=== PATIENT | male | born 1960 | race Caucasian/White ===

== ENCOUNTER 2017-08-25 19:37 | Emergency (ER) | payer OTHER ==
[2017-08-25] MEDS ORDERED: GLUCAGON,HUMAN RECOMB 1 MG INJ IV ONE (21:04)
[2017-08-25] MEDS ORDERED: MAG HYDROX/AL HYDROX/SIMETH SUSP 30 ML UDCUP PO ONE (21:48)
[2017-08-25] MEDS ORDERED: LIDOCAINE 2% VISCOUS SOLN 20 ML UDCUP PO ONE (21:48)
[2017-08-25] MEDS ORDERED: METOCLOPRAMIDE HCL ORAL SOLN 10 MG/10 ML UDCUP PO ONE (21:48)
--- NOTE | 2017-08-25 22:02 | ER Document Report ---
ED General - General Chief Complaint: Foreign Body Stated Complaint: THROAT PAIN Time Seen by Provider: 08/25/17 21:04 Notes: The patient is a 57-year-old male with a past medical history of esophageal strictures that required dilation on 2 prior occasions who presents with a food bolus lodged in his esophagus. The patient states that he was eating ribs prior to arrival when he feels like a piece of the rib got stuck in his throat. He describes a sensation of something being stuck in his chest and as a dull, throbbing, constant pain. He states this feels very similar to when he had flu but says stuck in his esophagus in the past. He has had nausea and is unable to swallow and keep whatever he swallows down. He denies any difficulty breathing. No vomiting. TRAVEL OUTSIDE OF THE [place] IN LAST 30 DAYS: No - Related Data Allergies/Adverse Reactions: morphine Allergy (Verified 08/25/17 19:40) Past Medical History - General Information source: Patient - Social History Smoking Status: Never Smoker Frequency of alcohol use: None Drug Abuse: None Lives with: Spouse/Significant other Family History: Reviewed & Not Pertinent Patient has suicidal ideation: No Patient has homicidal ideation: No Renal/ Medical History: Denies: Hx Peritoneal Dialysis Review of Systems - Review of Systems Notes: Constitutional: Negative for fever. HENT: Positive for a sensation of something being stuck in his throat and chest Eyes: Negative for visual changes. Cardiovascular: Negative for chest pain. Respiratory: Negative for shortness of breath. Gastrointestinal: Positive for nausea Genitourinary: Negative for dysuria. Musculoskeletal: Negative for back pain. Skin: Negative for rash. Neurological: Negative for headaches, weakness or numbness. 10 point ROS negative except as marked above and in HPI. Physical Exam - Vital signs Vitals: Temp Pulse Resp BP Pulse Ox 98.2 F 92 20 156/92 H 96 08/25/17 19:55 08/25/17 19:55 08/25/17 19:55 08/25/17 19:55 08/25/17 19:55 Interpretation: Hypertensive Notes: PHYSICAL EXAMINATION: GENERAL: Well-appearing, well-nourished and in no acute distress. HEAD: Atraumatic, normocephalic. EYES: Pupils equal round and reactive to light, extraocular movements intact, sclera anicteric, conjunctiva are normal. ENT: nares patent, oropharynx clear without exudates. Moist mucous membranes. NECK: Normal range of motion, supple without lymphadenopathy LUNGS: Breath sounds clear to auscultation bilaterally and equal. No wheezes rales or rhonchi. HEART: Regular rate and rhythm without murmurs ABDOMEN: Soft, nontender, normoactive bowel sounds. No guarding, no rebound. No masses appreciated. EXTREMITIES: Normal range of motion, no pitting or edema. No cyanosis. NEUROLOGICAL: No focal neurological deficits. Moves all extremities spontaneously and on command. PSYCH: Normal mood, normal affect. SKIN: Warm, Dry, normal turgor, no rashes or lesions noted. Course - Re-evaluation Re-evalutation: 08/25/17 21:59 Patient presents with a foreign body lodged in the esophagus of which she has a history. It appears that it is a piece of pork. The patient states that he can swallow secretions but they never stay down he ends up spitting them back up. He has a history of the same in the past including requiring 2 esophageal dilations in the past. X-rays do not show any evidence of perforation or aspiration. I have discussed with our surgeon clinical education coordinator Dr. Nunn who has accepted the patient for endoscopy. 08/26/17 00:32 Endoscopy has been completed without difficulty. Patient is awake, alert and appropriate for discharge, tolerating oral intake without difficulty. At this time will discharge with return precautions and follow-up recommendations. Verbal discharge instructions given a the bedside and opportunity for questions given. Medication warnings reviewed. Patient is in agreement with this plan and has verbalized understanding of return precautions and the need for primary care follow-up in the next 24-72 hours. - Vital Signs Vital signs: Temp Pulse Resp BP Pulse Ox 98.2 F 89 16 145/88 H 97 08/25/17 19:55 08/26/17 01:25 08/26/17 01:25 08/26/17 01:25 08/26/17 01:25 - Diagnostic Test Radiology reviewed: Image reviewed, Reports reviewed Radiology results interpreted by me: 08/25/17 22:01 Chest xray: No infiltrate or evidence of aspiration Discharge - Discharge Clinical Impression: Esophageal obstruction due to food impaction Nausea and vomiting Qualifiers: Vomiting type: unspecified Vomiting Intractability: non-intractable Qualified Code(s): R11.2 - Nausea with vomiting, unspecified Condition: Good Disposition: HOME, SELF-CARE Additional Instructions: Please follow-up with your GI doctor for consideration of an esophageal dilation. Return if you have difficulty breathing, difficulty swallowing, persistent vomiting, or any other symptoms that are worrisome to you. Referrals: AYAKA PERDOMO MD [Primary Care Provider] - Follow up as needed
--- NOTE | 2017-08-25 22:39 | RADIOLOGY REPORT (SQ) ---
EXAM DESCRIPTION: SOFT TISSUE NECK COMPLETED DATE/TIME: 08/25/2017 9:40 pm REASON FOR STUDY: foreign body throat COMPARISON: None. NUMBER OF VIEWS: Two views. TECHNIQUE: AP and lateral radiographic image of the soft tissues of the neck. LIMITATIONS: None. FINDINGS: EPIGLOTTIS: Contour normal. PREVERTEBRAL SOFT TISSUES: No soft tissue swelling. SUBGLOTTIC AREA: Normal. No narrowing. BONES: No significant findings. LUNG APICES: Normal. OTHER: No radiopaque foreign body. IMPRESSION: No acute radiographic finding at the soft tissues of the neck. No radiopaque foreign mor dy. TECHNICAL DOCUMENTATION: JOB ID: [id number] [place]-[id number] 2010 [employer]- All Rights Reserved Reading location - IP/workstation name: [email or web address]
--- NOTE | 2017-08-25 22:44 | RADIOLOGY REPORT (SQ) ---
EXAM DESCRIPTION: CHEST SINGLE VIEW COMPLETED DATE/TIME: 08/25/2017 9:40 pm REASON FOR STUDY: foreign body throat COMPARISON: None. EXAM PARAMETERS: NUMBER OF VIEWS: One view. TECHNIQUE: Single frontal radiographic view of the chest acquired. RADIATION DOSE: NA LIMITATIONS: None. FINDINGS: LUNGS AND PLEURA: No consolidation, pneumothorax or pleural effusion. MEDIASTINUM AND HILAR STRUCTURES: No masses. Contour normal. HEART AND VASCULAR STRUCTURES: Heart normal in size. Normal vasculature. BONES: No acute findings. HARDWARE: None in the chest. OTHER: No radiopaque foreign body is identified. IMPRESSION: No acute radiographic finding in the chest. No radiopaque foreign body. TECHNICAL DOCUMENTATION: JOB ID: [id number] [place]-[id number] 2010 [employer]- All Rights Reserved Reading location - IP/workstation name: [email or web address]
[2017-08-25] MEDS ORDERED: DIPHENHYDRAMINE HCL 50 MG/ML VIAL ONE (22:54)
[2017-08-25] MEDS ORDERED: NALOXONE HCL INJ/PF 0.4 MG/1 ML SDV ONE (22:54)
[2017-08-25] MEDS ORDERED: ONDANSETRON HCL INJ/PF 4 MG/2 ML SDV ONE (22:54)
[2017-08-25] MEDS ORDERED: EPINEPHRINE INJ 1 MG/10 ML DISP.SYRIN ONE (22:55)
[2017-08-25] MEDS ORDERED: FLUMAZENIL INJ 0.5 MG/5 ML VIAL ONE (22:55)
[2017-08-25] MEDS ORDERED: GLUCAGON,HUMAN RECOMB 1 MG INJ ONE (22:55)
--- NOTE | 2017-08-25 23:17 | PDOC CONSULTATION ---
Consultation Consult Date: 08/25/17 Consult reason:: Food bolus lodged within the esophagus History of Present Illness Admission Date/PCP: AYAKA PERDOMO Patient complains of: Food bolus lodged within the esophagus History of Present Illness: MARTHA TOVAR is a 57 year old male seen in consultation at the request of the ER physician. The pt has a h/o chronic esophageal stricture. He has had previous dilations and food bolus extractions in the past. Earlier today, he was eating meat and felt it become stuck. Afterwards, the pt was unable to swallow anything. The pt denies any shortness of breath, fevers chills, nausea, dizziness, orthostasis, abdominal pain, melena. He does report chest discomfort with swallowing. Nothing makes his pain better. Swallowing makes it worse. Past Medical History Cardiac Medical History: Reports: Hypertension Pulmonary Medical History: Reports: None EENT Medical History: Reports: None Neurological Medical History: Reports: None Endocrine Medical History: Reports: None Renal/ Medical History: Reports: None Malignancy Medical History: Reports: None GI Medical History: Reports: Other - esophageal stricture Musculoskeltal Medical History: Reports: None Skin Medical History: Reports: None Psychiatric Medical History: Reports: None Traumatic Medical History: Reports: None Infectious Medical History: Reports: None Past Surgical History Past Surgical History: Reports: Appendectomy, Other - esophageal dilations, food bolus extraction Social History Information Source: Patient Smoking Status: Unknown if Ever Smoked Family History Family History: Reviewed & Not Pertinent Parental Family History Reviewed: Yes Children Family History Reviewed: Yes Sibling(s) Family History Reviewed.: Yes Medication/Allergy Allergies/Adverse Reactions: morphine Allergy (Verified 08/25/17 19:40) Review of Systems Constitutional: ABSENT: anorexia, chills, fatigue Eyes: ABSENT: visual disturbances Ears: ABSENT: hearing changes Nose, Mouth, and Throat: ABSENT: sore throat Cardiovascular: ABSENT: chest pain, edema, orthropnea, palpitations Respiratory: ABSENT: cough, dyspnea, hemoptysis Gastrointestinal: PRESENT: other - dysphagia. ABSENT: abdominal pain Genitourinary: ABSENT: dysuria, hematuria Musculoskeletal: ABSENT: back pain, deformity, joint swelling Integumentary: ABSENT: erythema, pruritus, rash Neurological: ABSENT: abnormal gait, abnormal movements, abnormal speech, confusion, convulsions, memory loss Psychiatric: ABSENT: anxiety, depression, hallucinations Endocrine: ABSENT: cold intolerance, heat intolerance Hematologic/Lymphatic: ABSENT: easy bleeding, easy bruising Physical Exam Vital Signs: Temp Pulse Resp BP Pulse Ox 98.2 F 92 20 156/92 H 96 08/25/17 19:55 08/25/17 19:55 08/25/17 19:55 08/25/17 19:55 08/25/17 19:55 Intake & Output 08/24/17 08/25/17 08/26/17 06:59 06:59 06:59 Weight 90.5 kg General appearance: PRESENT: no acute distress Head exam: PRESENT: atraumatic, normocephalic Eye exam: PRESENT: EOMI, PERRLA. ABSENT: scleral icterus Mouth exam: ABSENT: moist, neck supple Neck exam: ABSENT: meningismus, tenderness, thyromegaly, tracheal deviation Respiratory exam: PRESENT: clear to auscultation simone, rales. ABSENT: chest wall tenderness, retraction, rhonchi Cardiovascular exam: PRESENT: RRR Pulses: PRESENT: normal radial pulses Vascular exam: PRESENT: normal capillary refill. ABSENT: pallor GI/Abdominal exam: PRESENT: soft. ABSENT: distended, rebound, tenderness Rectal exam: PRESENT: deferred Extremities exam: ABSENT: clubbing, pedal edema, tenderness Neurological exam: PRESENT: alert, altered, oriented to person, oriented to place, oriented to time, oriented to situation, CN II-XII grossly intact. ABSENT: motor sensory deficit Psychiatric exam: ABSENT: agitated, anxious, depressed Skin exam: ABSENT: abrasion, cyanosis, erythema, jaundice, pallor Results Impressions: Chest X-Ray 08/25/17 21:05 IMPRESSION: No acute radiographic finding in the chest. No radiopaque foreign body. Soft Tissue Neck X-Ray 08/25/17 21:05 IMPRESSION: No acute radiographic finding at the soft tissues of the neck. No radiopaque foreign body. Assessment & Plan - Diagnosis (1) Esophageal obstruction due to food impaction Is this a current diagnosis for this admission?: Yes - Plan Summary Plan Summary: 57 y/o M with a chronic esophageal stricture and impacted food bolus. Plan for EGD with food bolus extraction tonight. Risks/benefits discussed, informed consent obtained, and all questions answered.
[2017-08-25] MEDS: MIDAZOLAM 2 MG/2 ML INJ ONE ×3 (23:18→23:23)
[2017-08-25] MEDS: FENTANYL CITRATE INJ/PF 100 MCG/2 ML AMPUL ONE ×2 (23:20→23:28)
[2017-08-25] MEDS ORDERED: MIDAZOLAM 2 MG/2 ML INJ ONE (23:41)
[2017-08-25] MEDS ORDERED: FENTANYL CITRATE INJ/PF 100 MCG/2 ML AMPUL ONE (23:41)
--- NOTE | 2017-08-26 00:02 | Operative Report ---
Nonrecallable Operative Report DATE OF SURGERY: 08/25/17 PREOPERATIVE DIAGNOSIS: Impacted food bolus in esophagus POSTOPERATIVE DIAGNOSIS: Same as above OPERATION: 1. EGD. 2. Extraction of impacted food bolus in distal esophagus. SURGEON: SANDRA PATEL ANESTHESIA: Moderate Sedation TISSUE REMOVED OR ALTERED: Food bolus COMPLICATIONS: None apparent ESTIMATED BLOOD LOSS: None PROCEDURE: Procedure in detail: After informed consent was obtained, the patient was brought into the endoscopy suite and laid in the left lateral decubitus position. The endoscope was passed down the oropharynx and into the esophagus after adequate moderate anesthesia was obtained. In the distal esophagus, a meat bolus was identified. The bolus was removed in piecemeal fashion with long grasping forceps. After the bolus was completely removed, the flexible scope was passed through the esophagus and into the stomach. There was some tortuosity at the distal esophagus, however there was no significant esophageal stricture. The scope passed easily into the stomach. The stomach was normal in appearance without obvious ulceration or abnormality. The scope was then withdrawn up the esophagus. The esophagus was smooth in contour without masses , lesions, ulcerations, obvious strictures, or other abnormalities. The scope was removed from the oropharynx, and the procedure was concluded. All sponge, instrument, and needle counts were correct 2. Condition: Stable.
[2017-08-26] MEDS ORDERED: METOCLOPRAMIDE HCL INJ/PF 10 MG/2 ML SDV IV ONE (00:36)
[2017-08-26 01:27] VITALS: BP 145/88
== END 2017-08-26 01:26 | disposition home or self-care (01) ==
LOC: ER 19:37
DX: T18.128A Food in esophagus causing other injury, initial encounter (principal); X58.XXXA Exposure to other specified factors, initial encounter; Y93.9 Activity, unspecified; R11.2 Nausea with vomiting, unspecified; Z88.5 Allergy status to narcotic agent
CPT/HCPCS: 99284; 96374; 96375; 43247; 71045; 70360; J2250; J3010; J1610; J2765; J0171; J1200; J2310; J2405; J3490